=== PATIENT | male | born 1995 | race African-American/Black ===

== ENCOUNTER 2019-09-21 05:23 | Emergency (ER) | payer MEDICAID ==
[~2019-09-21] VITALS: Ht 177.8 cm; Wt 77.0 kg
[2019-09-21 05:35] VITALS: BP 118/74
[2019-09-21] MEDS ORDERED: LIDOCAINE HCL/EPINEPHRINE 1%-EPI 1:100,000 30 ML VIAL INFIL ONE (06:00)
[2019-09-21] MEDS ORDERED: AZITHROMYCIN 500 MG TABLET PO ONE (06:00)
[2019-09-21] MEDS ORDERED: CEFTRIAXONE SODIUM 250 MG/VIAL IM ONE (06:00)
[2019-09-21] MEDS ORDERED: LIDOCAINE HCL/EPINEPHRINE 1%-EPI 1:100,000 20 ML VIAL INFIL ONE (06:30)
[2019-09-21 06:42] LABS: CLARITY URINE CLEAR (CLEAR); COLOR URINE YELLOW (YELLOW); KETONES URINE NEGATIVE (NEGATIVE); LEUKOCYTE ESTERASE URINE 2+ (NEGATIVE); NITRITE URINE NEGATIVE (NEGATIVE); OCCULT BLOOD URINE TRACE (NEGATIVE); PH URINE 6.5 (4.5-8.0); PROTEIN URINE NEGATIVE (NEGATIVE); SPECIFIC GRAVITY URINE 1.006 (1.005-1.030); UROBILINOGEN URINE 0.2 E.U./dL (0.2-1.0)
== END 2019-09-21 07:01 | disposition home or self-care (01) ==
LOC: ER 05:23
DX: N34.2 Other urethritis (principal); J45.909 Unspecified asthma, uncomplicated
CPT/HCPCS: 81003; 87086; 96372; 99283; J0696

== ENCOUNTER 2020-01-17 19:23 | Emergency (ER) | payer MEDICAID ==
[~2020-01-17] VITALS: Ht 177.8 cm; Wt 77.0 kg
[2020-01-17] MEDS ORDERED: LIDOCAINE HCL/PF 1% 10 MG/ML 5ML VIAL IJ ONE (20:15)
[2020-01-17] MEDS ORDERED: BACITRACIN ZINC OINT UDPKT TOP ONE (20:15)
[2020-01-17] MEDS ORDERED: ACETAMINOPHEN WITH CODEINE 300/30MG TABLET PO ONE (20:15)
[2020-01-17 22:00] VITALS: BP 125/82
== END 2020-01-17 22:02 | disposition home or self-care (01) ==
LOC: ER 19:23
DX: L03.012 Cellulitis of left finger (principal); J45.909 Unspecified asthma, uncomplicated
CPT/HCPCS: 10060; 99283; J3490